=== PATIENT | female | born 1965 | race Caucasian/White ===

== ENCOUNTER → 2020-12-09 12:22 | Outpatient (CLI) | payer SELFPAY ==
--- NOTE | 2020-12-09 12:25 | MRI_ITS ---
STUDY: MRI BRAIN WITHOUT CONTRAST REASON FOR EXAM: Female, 54 years old. Migraine Headache TECHNIQUE: Standardized multiplanar fat and water weighted pulse sequences were obtained. COMPARISON: None. FINDINGS: Normal size of the ventricles and extra-axial spaces for the patient''s age. Normal white matter tracts of the supratentorial brain. There is no evidence for recent intracranial ischemia or other cause of cytotoxic edema on diffusion weighted imaging (DWI). Normal T2* images of the brain without demonstrated susceptibility artifact. There is no demonstrated hemosiderin stain. Normal bilateral basal ganglia. Normal thalami. There is no extra-axial fluid accumulation. Normal flow voids within the major intracranial circulation suggesting patency by spin echo criteria. Normal sella turcica, pituitary gland, infundibular stalk, optic chiasm and hypothalamus. Normal tectal plate and pineal gland. Normal midbrain, kathi and medulla. Normal cerebellum. Normal basal cisterns. Normal bilateral temporal bones. Normal bilateral internal auditory canals. No demonstrated orbital abnormality, within the constraints of a routine brain study. Normal visualized paranasal sinuses. Normal calvarium and skull base. Normal visualized soft tissue structures. Normal visualized upper cervical spine. MRI/Brain without Contrast IMPRESSION: Normal unenhanced MRI of the brain. Electronically Signed: Ger Larry MD at 16:52 EDT Tel , Service support ,
== END ==
PROVIDERS: PCP Family Medicine; Referring Provider Psychiatry & Neurology Neurology; Visit Provider Psychiatry & Neurology Neurology
DX: G43.909 Migraine, unspecified, not intractable, without status migrainosus (principal)
CPT/HCPCS: 70551

== ENCOUNTER 2021-11-15 10:00 | Outpatient (RCR) | payer SELFPAY ==
--- NOTE | 2021-10-20 14:12 | HP.PTEVAL_ITS ---
Patient's Visit Information MICHI ROTHMAN is a 55 year old F referred to Physical Therapy by Self Referred with a diagnosis of BACK AND LEG PAIN. Date of Evaluation: 10/20/21 Physical Therapist: Praful Larkin, PT, Cert MDT, OCS - Visit Plan Frequency: 1x/Week Duration: 5 WEEEKS Plan: PT [employer] RADIAL PULSED WAVE THERAPY COXXYODINA FOR PAIN ZONE ,US ,MANAUAL THERAPY,LE STRETCHING ,DLS - Subjective This 55 y/o female presents physical therapy with back pain. Patient underwent s/p lumbar surgery 2016 disc replacement L4-5 ,L5-S1 cage fusion with screws in [place] . Patient had pain free for 2 years. Patient contact surgeon [place] in August with video and reviewed x-rays. Every thing looked good. Currently, pain around SI with right leg . Aggravating standing, walking , extended periods ,lifting . Alleviating ice ibuprofrin. Patient DR in [place] recommended epidural injection SI. C/O paresthesia/tingling in leg. Coughing/sneezing -. Bowel/bladder -. Patient sleeping okay at night. 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 Symptoms affects daily chores has someone doing cleaning and does garden. Patient want to try Pulsed shock wave ,before doing epidural injections. SOCIAL: - Pain Bilateral Back Pain Intensity (Out of 10): 5 Pain Intensity Range: 10 Left Pain Intensity (Out of 10): 6 Pain Intensity Range: 10 - Objective POSTURE: mild forward posture. GAIT: reciprocal pattern. SYMMTRIES: align. PALPATION: tender LS/SI. FLEXABLITY: min tight hamstrings. MMT: quads/hams 4/5,hip flexion 4/5,hip abd 4-/5,ankle DF 4/5. LUMBAR ROM: flexion loss, extension min loss, side glides min loss - Special Tests L/S Slump test left side: Negative L/S Slump test right side: Negative L/S Left Straight Leg Raise: Positive L/S Right Straight Leg Raise: Negative - Balance/Special Test Scores Oswestry Low Back Score: 21 - Goals Goal 1:: Patient is I HEP Goal Time Frame: 4-6 Weeks Goal 2:: Patient to demonstrate 50% improvement with decrease pain and improved function Goal Time Frame: 4-6 Weeks Goal 3:: Patient to improve lumbar ROM for function of recovery Goal Time Frame: 4-6 Weeks Goal 4:: Patient improve back oswestry score by 5 points to improve QOL Goal Time Frame: 4-6 Weeks - Rehabilitation Potential Physical Therapy Diagnosis: This patient has h/o lumbar disc replacement L4-5 and cage L5-S1 ,2016 with pain positioning and movement lumbar . Patient pain was good for 2 years and progressively worsen thus benefit from skilled PT. * PATIENT DECLINED TO HAVE EVALUATION PLAN OF CARE AND TREATMENT SENT TO ANY DR FAMILY OR SURGEON IN [place] * Rehabilitation Potential: Good - Anticipated Interventions Patient/Client Instruction: Educate patient on: Condition, Plan of Care For the Purpose of:: To decrease pain, To increase ROM, To improve ability to perform ADL's, To increase tolerance to activity/condition/position, To improve performance and independence with ADL's, To improve health of tissue, To decrease soft tissue restriction, To increase flexibility/ROM, To reduce risk of recurrence Therapeutic Exercise to Include: Postural training, Flexibilty training, Active ROM, Dynamic Lumbar Stabilization For the Purpose of:: To decrease pain, To increase ROM, To improve muscle performance and motor function, To increase tolerance to activity/condition/position, To improve ability of physical actions for home/community/work/leisure, To improve health of tissue, To decrease soft tissue restriction, To increase flexibility/ROM Thermo therapy (hot pack): Yes Ultrasound (thermal/non thermal): Yes For the Purpose of:: To decrease pain, To increase ROM, To improve nutrient delivery to tissue, To increase oxygenation perfusion, To improve health of tissue, To decrease soft tissue restriction Thank you for the opportunity to evaluate your patient. For Medicare and Medicare HMO plans, please review the plan of care and approve it. It will need to be FAXED BACK to us at [phone] for Medicare purposes. For Medicare only, by signing this I certify the plan of care. Please let me know if there are questions or concerns regarding this plan of care. Physician Signature: Date:
== END 2021-11-15 19:00 | disposition home or self-care (01) ==
LOC: PT 10:00
PROVIDERS: PCP Family Medicine
DX: R69 Illness, unspecified (principal)